=== PATIENT | female | born 1970 | race Caucasian/White ===

== ENCOUNTER → 2018-03-21 10:13 | Outpatient (CLI) | payer BC | END | disposition home or self-care (01) | LOC: D.RT 10:13 | DX: J44.9 Chronic obstructive pulmonary disease, unspecified (principal) ==

== ENCOUNTER → 2019-06-15 07:24 | Outpatient (CLI) | payer MEDICAID | END | disposition home or self-care (01) | LOC: D.RT 03-23 08:00 | PROVIDERS: ATTEND Internal Medicine Pulmonary Disease | DX: J44.9 Chronic obstructive pulmonary disease, unspecified (principal) ==

== ENCOUNTER 2019-07-20 19:10 | Emergency (ER) | payer MEDICAID ==
[~2019-07-20] VITALS: Ht 152.4 cm; Wt 79.5 kg
[2019-07-20 19:16] VITALS: Ht 152.4 cm; Wt 79.5 kg
[2019-07-20] MEDS ORDERED: GLUCOPHAGE1000 MG PO (19:17)
[2019-07-20] MEDS ORDERED: NEURONTIN 300300 MG PO (19:18)
[2019-07-20] MEDS ORDERED: ADVAIR 250-501 EAC1 INH (19:18)
[2019-07-20] MEDS ORDERED: INCRUSE ELLI62.5 MCG INH (19:18)
[2019-07-20] MEDS ORDERED: SINGULAIR10 MG PO (19:19)
[2019-07-20] MEDS ORDERED: FLUTICASONE PRO16 GM NASAL (19:19)
[2019-07-20] MEDS ORDERED: PROAIR HFA8.5 G1 INH (19:19)
[2019-07-20] MEDS ORDERED: LISINOPRIL2.5 MG PO (19:19)
[2019-07-20] MEDS ORDERED: TESSALON PERLE100 MG PO (19:19)
[2019-07-20 19:37] LABS: BASOPHILS 0.3 % (0-2); EOSINOPHILS 2.3 % (0-7); HEMATOCRIT 35.2 % (36.0-48.0); HEMOGLOBIN 11.2 g/dL (12-16); IMMATURE GRANULOCYTES 0.1 % (0-5); LYMPHOCYTES 20.6 % (15-50); MCH 27.7 pg (26.0-34.0); MCHC 31.8 g/dL (31.0-37.0); MCV 87.1 fL (80.0-100.0); MEAN PLATELET VOLUME 10.4 fL (7.4-10.4); MONOCYTES 6.3 % (2-11); NEUTROPHILS 70.4 % (40-80); PLATELET COUNT 403 10x3/uL (130-400); RBC 4.04 10x6/uL (4.00-5.40); RDW 14.1 % (11.5-14.5); WBC 11.3 10x3/uL (4.8-10.8)
[2019-07-20 19:48] LABS: APTT 23.7 SECONDS (22.8-39.4); CALC OSMOLALITY 289 mosm/kg (275-300); CARBON DIOXIDE 28.6 mmol/L (21.0-32.0); CHLORIDE - SERUM 100 mmol/L (98-107); CREATININE - SERUM 3.1 mg/dL (0.6-1.3); GLUCOSE 121 mg/dL (74-106); INR 0.89 (0.85-1.17); POTASSIUM - SERUM 4.7 mmol/L (3.5-5.1); SODIUM 139 mmol/L (136-145); UREA NITROGEN 43 mg/dL (7-18); eGFR NON AFRICAN AMERICAN 17 mL/min (90-120)
[2019-07-20 20:05] LABS: ALBUMIN 3.9 g/dL (3.4-5.0); ALKALINE PHOSPHATASE 78 U/L (30-120); ALT (SGPT) 45 U/L (10-68); AMYLASE - SERUM 64 U/L (25-115); BILIRUBIN - TOTAL 0.23 mg/dL (0.2-1.3); CKMB 2.8 U/L (0.0-3.6); CREATINE KINASE 279 UL (21-215); LIPASE 219 U/L (73-393); TROPONIN-I < 0.017 ng/mL (0.000-0.060)
[2019-07-20 20:07] LABS: MAGNESIUM - SERUM 3.6 mg/dL (1.8-2.4)
[2019-07-20 20:50] VITALS: BP 120/77
== END 2019-07-20 20:50 | disposition home or self-care (01) ==
LOC: D.ER 19:10
PROVIDERS: Family Medicine
DX: R10.9 Unspecified abdominal pain (principal); M54.2 Cervicalgia; R07.9 Chest pain, unspecified; E11.40 Type 2 diabetes mellitus with diabetic neuropathy, unspecified; J44.9 Chronic obstructive pulmonary disease, unspecified; Z79.84 Long term (current) use of oral hypoglycemic drugs